=== PATIENT | male | born 1980 | race Caucasian/White ===

== ENCOUNTER 2016-12-31 14:14 | Emergency (ER) | payer MEDICAID ==
[~2016-12-31] VITALS: Ht 182.9 cm; Wt 88.6 kg
[2016-12-31 14:15] VITALS: BP 119/77
[2016-12-31] MEDS: APAP/CODEINE 24/2.4MG/ML ELIXIR PO PRN (16:41)
== END 2016-12-31 17:05 | disposition home or self-care (01) ==
LOC: ED 16:57
DX: B34.9 Viral infection, unspecified (principal); F17.200 Nicotine dependence, unspecified, uncomplicated; F32.9 Major depressive disorder, single episode, unspecified
CPT/HCPCS: 99283

== ENCOUNTER 2017-05-02 16:02 | Emergency (ER) | payer MEDICAID ==
[~2017-05-02] VITALS: Ht 182.9 cm; Wt 90.5 kg
[2017-05-02 16:06] VITALS: BP 109/79
[2017-05-02] MEDS ORDERED: HYDROcodone/APAP 5/325 TABLET PO ONE (16:30)
[2017-05-02] MEDS ORDERED: HYDROcodone/APAP 5/325 TABLET ONE (16:31)
[2017-05-02] MEDS ORDERED: OXYcodone/APAP 5/325MG TABLET ONE (16:34)
[2017-05-02] MEDS ORDERED: OXYcodone/APAP 5/325MG TABLET PO ONE (17:00)
== END 2017-05-02 17:19 | disposition home or self-care (01) ==
LOC: ED 16:30
DX: K02.9 Dental caries, unspecified (principal); K01.1 Impacted teeth
CPT/HCPCS: 99283

== ENCOUNTER 2018-08-24 15:44 | Emergency (ER) | payer BC, MEDICAID ==
[~2018-08-24] VITALS: Ht 182.9 cm; Wt 103.7 kg
--- NOTE | 2018-08-24 16:11 | NUR ---
Pt presents to ED with c/o intermittent and now constant epigastric pain that began on Thursday. Pt states, "On Thursday I threw up and had diarrhea at the same time, which was really awkward. I threw up [employer] slime that was clear and black stuff in it. I had diarrhea on Thursday. I don't think I have had a bowel movement since." NADN. Pt resting on gurney connected to NIBP, continous pulse ox, and court monitor. Bedside rail up for safety measure. Call light within reach. Ultrasound at bedside. Pt denies blood in emesis or stool. Pt denies cp, sob, trauma, syncope, diaphoresis, or numbness or tingling.
[2018-08-24 16:36] LABS: BASOPHILS # (AUTO) 0.04 x10^3/uL (0-0.1); BASOPHILS % (AUTO) 1 % (0-1); EOSINOPHILS # (AUTO) 0.59 x10^3/uL (0-0.4); EOSINOPHILS % (AUTO) 7 % (1-7); LYMPHOCYTES # (AUTO) 2.83 x10^3/uL (1-3.4); LYMPHOCYTES % (AUTO) 32 % (22-44); MD NO; MEAN CORPUSCULAR HEMOGLOBIN 31.9 pg (27.5-34.5); MEAN CORPUSCULAR HGB CONC 34.7 g/dL (33.2-36.2); MEAN CORPUSCULAR VOLUME 91.8 fL (81-97); MEAN PLATELET VOLUME 8.9 fL (7.4-10.4); MONOCYTES # (AUTO) 0.56 x10^3/uL (0.2-0.8); MONOCYTES % (AUTO) 6 % (2-9); NEUTROPHILS # (AUTO) 4.87 x10^3/uL (1.8-6.8); NEUTROPHILS % (AUTO) 55 % (42-75); PLATELET COUNT 234 x10^3/uL (130-400); RED BLOOD COUNT 5.23 x10^6/uL (4.38-5.82); RED CELL DISTRIBUTION WIDTH 12.7 % (9.4-14.8)
[2018-08-24 16:38] LABS: ALANINE AMINOTRANSFERASE 62 U/L (12-78); ALBUMIN 3.8 g/dL (3.4-5.0); ANION GAP 9 mmol/L (5-15); CALCIUM 8.5 mg/dL (8.5-10.1); CHLORIDE 110 mmol/L (98-107); CREATININE 0.98 mg/dL (0.7-1.3)
[2018-08-24 16:40] LABS: ALKALINE PHOSPHATASE 121 U/L (45-117); BILIRUBIN,TOTAL 0.2 mg/dL (0.2-1.0); TOTAL PROTEIN 7.5 g/dL (6.4-8.2)
[2018-08-24] MEDS ORDERED: MAALOX/HYOSCYAMINE/LIDOCAINE 45 ML BTL PO ONE (17:00)
[2018-08-24] MEDS ORDERED: MAALOX/HYOSCYAMINE/LIDOCAINE 45 ML BTL ONE (17:03)
[2018-08-24 17:08] VITALS: BP 107/70
--- NOTE | 2018-08-24 17:08 | NUR ---
Provided medication per EMAR to pt. Pt appreciative. Provided urinal to pt. Pt aware of need of UA. NADN. No other needs. Call light within reach.
[2018-08-24 17:31] LABS: MICROSCOPIC NOT IND
[2018-08-24 17:40] LABS: CULTURE INDICATED? NO
--- NOTE | 2018-08-24 18:30 | NUR ---
Patient given discharge instructions and they have confirmed that they understand the instructions. Patient ambulatory with steady gait. Patient left with d/c paperwork, prescriptions, and all personal belongings.
== END 2018-08-24 18:35 | disposition home or self-care (01) ==
LOC: ED 18:00
DX: K26.3 Acute duodenal ulcer without hemorrhage or perforation (principal)
CPT/HCPCS: 36415; 76700; 80053; 81003; 83690; 85025; 93005; 99284

== ENCOUNTER 2018-08-26 14:04 | Emergency (ER) | payer BC ==
[~2018-08-26] VITALS: Ht 182.9 cm; Wt 102.9 kg
[2018-08-26] MEDS ORDERED: SODIUM CHLORIDE FLUSH 10ML SYR IVF ONE (14:30)
[2018-08-26 14:40] LABS: MEAN CORPUSCULAR HEMOGLOBIN 31.7 pg (27.5-34.5); MEAN CORPUSCULAR HGB CONC 34.6 g/dL (33.2-36.2); MEAN CORPUSCULAR VOLUME 91.5 fL (81-97); MEAN PLATELET VOLUME 8.8 fL (7.4-10.4); PLATELET COUNT 272 x10^3/uL (130-400); RED BLOOD COUNT 5.62 x10^6/uL (4.38-5.82); RED CELL DISTRIBUTION WIDTH 12.9 % (9.4-14.8)
--- NOTE | 2018-08-26 14:47 | NUR ---
PATIENT PRESENTS TO ED TODAY FOR RUQ/LUQ ABD PAIN AND N/V/D X 6 DAYS. IV STARTED, LABS DRAWN, EKG COMPLETED. NAD NOTED. CALL LIGHT WITHIN REACH.
[2018-08-26 14:50] LABS: ALANINE AMINOTRANSFERASE 91 U/L (12-78); ANION GAP 8 mmol/L (5-15); CALCIUM 8.6 mg/dL (8.5-10.1); CHLORIDE 109 mmol/L (98-107); CREATININE 0.97 mg/dL (0.7-1.3)
[2018-08-26 14:52] LABS: ALKALINE PHOSPHATASE 106 U/L (45-117); BILIRUBIN,TOTAL 0.2 mg/dL (0.2-1.0); TOTAL PROTEIN 7.7 g/dL (6.4-8.2)
[2018-08-26 14:59] LABS: BASOPHILS # (AUTO) 0.01 x10^3/uL (0-0.1); BASOPHILS % (AUTO) 0 % (0-1); EOSINOPHILS # (AUTO) 0.69 x10^3/uL (0-0.4); EOSINOPHILS % (AUTO) 6 % (1-7); LYMPHOCYTES # (AUTO) 2.72 x10^3/uL (1-3.4); LYMPHOCYTES % (AUTO) 25 % (22-44); MD SCAN; MONOCYTES # (AUTO) 0.53 x10^3/uL (0.2-0.8); MONOCYTES % (AUTO) 5 % (2-9); NEUTROPHILS # (AUTO) 6.98 x10^3/uL (1.8-6.8); NEUTROPHILS % (AUTO) 64 % (42-75)
[2018-08-26] MEDS ORDERED: PROMETHAZINE 25 MG/ML, 1ML IM ONE (15:00)
[2018-08-26] MEDS ORDERED: PROMETHAZINE 25 MG/ML, 1ML ONE (15:01)
--- NOTE | 2018-08-26 16:09 | NUR ---
LAB RESULTS BACK, PENDING CT.
--- NOTE | 2018-08-26 16:16 | NUR ---
PATIENT NEXT FOR CT, PER EXECUTIVE CONSULTANT.
--- NOTE | 2018-08-26 16:43 | NUR ---
PATIENT TO CT VIA [id number].
[2018-08-26] MEDS ORDERED: OMNIPAQUE 350 MG/ML, 100ML BOTTLE ONE (16:59)
[2018-08-26 17:59] VITALS: BP 106/59
--- NOTE | 2018-08-26 17:59 | NUR ---
Patient/Caregiver given discharge instructions and they have confirmed that they understand the instructions. Patient ambulatory with steady gait.
[2018-08-29] MEDS ORDERED: ONDA4TAB7 PO (07:44)
[2018-08-29] MEDS ORDERED: RANI150C PO (07:45)
[2018-08-29] MEDS ORDERED: SUCR1TAB PO (07:45)
[2018-08-29] MEDS ORDERED: OMEP-110 PO (07:45)
== END 2018-08-26 18:01 | disposition home or self-care (01) ==
LOC: ED 17:07
DX: K27.3 Acute peptic ulcer, site unspecified, without hemorrhage or perforation (principal); R10.13 Epigastric pain; Z88.5 Allergy status to narcotic agent
CPT/HCPCS: 36415; 74177; 80053; 83690; 85025; 93005; 96372; 99284; J2550; Q9967

== ENCOUNTER 2018-11-12 10:47 | Emergency (ER) | payer BC ==
[~2018-11-12] VITALS: Ht 182.9 cm; Wt 91.0 kg
[2018-11-12 11:56] VITALS: BP 112/70
== END 2018-11-12 12:43 | disposition home or self-care (01) ==
LOC: ED 12:18
DX: R55 Syncope and collapse (principal); K21.9 Gastro-esophageal reflux disease without esophagitis; F17.210 Nicotine dependence, cigarettes, uncomplicated
CPT/HCPCS: 36415; 80053; 80307; 81003; 83605; 84484; 85025; 93005; 99284

== ENCOUNTER 2019-06-05 08:52 | Emergency (ER) | payer BC ==
[~2019-06-05] VITALS: Ht 182.9 cm; Wt 106.8 kg
[~2019-06-05 08:52] MED LIST: OMEP-110 PO; ONDA4TAB7 PO; RANI150C PO; SUCR1TAB PO
--- NOTE | 2019-06-05 09:12 | NUR ---
PT HERE WITH C/O DIZZINESS AND LIGHTHEADEDNESS X 3 DAYS AND ASSOCIATED VOMITING THIS MORNING. PT AAO X 4, NAD, ROOM AIR, DRESSED IN GOWN AND ON FULL MONITOR. CALL LIGHT WITHIN REACH AND SIDERAIL X [address] FAMILY AT BEDSIDE.
[2019-06-05] MEDS ORDERED: TRAZ50TA66 PO (09:18)
[2019-06-05] MEDS ORDERED: LEXAPRO (09:18)
[2019-06-05] MEDS ORDERED: ABILIFY (09:18)
[2019-06-05] MEDS ORDERED: AMPH15TA PO (09:18)
--- NOTE | 2019-06-05 09:25 | NUR ---
MACHINIST AT BEDSIDE FOR EXAM.
[2019-06-05] MEDS ORDERED: MECLIZINE CHEWABLE 25 MG TAB ONE (09:51)
[2019-06-05 09:53] VITALS: BP 107/62
--- NOTE | 2019-06-05 09:53 | NUR ---
PT MEDICATED PER ORDERS. MD AT BEDSIDE FOR EXAM.
[2019-06-05] MEDS ORDERED: MECLIZINE CHEWABLE 25 MG TAB PO ONE (10:00)
--- NOTE | 2019-06-05 10:38 | NUR ---
LAB AT BEDSIDE.
[2019-06-05 10:46] LABS: BASOPHILS # (AUTO) 0.05 x10^3/uL (0-0.1); BASOPHILS % (AUTO) 1 % (0-1); EOSINOPHILS # (AUTO) 0.37 x10^3/uL (0-0.4); EOSINOPHILS % (AUTO) 4 % (1-7); LYMPHOCYTES % (AUTO) 26 % (22-44); MD NO; MEAN CORPUSCULAR HEMOGLOBIN 31.8 pg (27.5-34.5); MEAN CORPUSCULAR HGB CONC 34.1 g/dL (33.2-36.2); MEAN CORPUSCULAR VOLUME 93.3 fL (81-97); MONOCYTES # (AUTO) 0.49 x10^3/uL (0.2-0.8); MONOCYTES % (AUTO) 5 % (2-9); NEUTROPHILS # (AUTO) 5.98 x10^3/uL (1.8-6.8); NEUTROPHILS % (AUTO) 64 % (42-75); PLATELET COUNT 244 x10^3/uL (130-400); RED BLOOD COUNT 5.44 x10^6/uL (4.38-5.82); RED CELL DISTRIBUTION WIDTH 12.6 % (9.4-14.8)
[2019-06-05 10:58] LABS: ALBUMIN 3.4 g/dL (3.4-5.0); CALCIUM 8.4 mg/dL (8.5-10.1); CHLORIDE 107 mmol/L (98-107); CREATININE 1.14 mg/dL (0.7-1.3)
[2019-06-05 11:06] LABS: ANION GAP 6 mmol/L (5-15)
--- NOTE | 2019-06-05 11:55 | NUR ---
Patient/Caregiver given discharge instructions and they have confirmed that they understand the instructions. Patient ambulatory with steady gait.
== END 2019-06-05 12:13 | disposition home or self-care (01) ==
LOC: ED 09:03
DX: R42 Dizziness and giddiness (principal); R11.10 Vomiting, unspecified; K21.9 Gastro-esophageal reflux disease without esophagitis; F17.200 Nicotine dependence, unspecified, uncomplicated
CPT/HCPCS: 36415; 80048; 82040; 85025; 93005; 99284

== ENCOUNTER 2020-01-11 10:31 | Emergency (ER) | payer BC, OTHER ==
[~2020-01-11] VITALS: Ht 182.9 cm; Wt 109.0 kg
[~2020-01-11 10:31] MED LIST changes: +ABILIFY; +AMPH15TA PO; +LEXAPRO; +TRAZ50TA66 PO
[2020-01-11 10:38] VITALS: BP 136/73
[2020-01-11] MEDS ORDERED: BUPIVACAINE 0.25% ONE (11:01)
[2020-01-11] MEDS ORDERED: LIDOCAINE-MPF 1%, 5ML ONE (11:01)
== END 2020-01-11 11:47 | disposition home or self-care (01) ==
LOC: ED 11:39
DX: K02.9 Dental caries, unspecified (principal); R22.0 Localized swelling, mass and lump, head
CPT/HCPCS: 64400; 99284

== ENCOUNTER 2020-01-16 21:01 | Emergency (ER) | payer OTHER ==
[~2020-01-16] VITALS: Ht 182.9 cm; Wt 111.3 kg
--- NOTE | 2020-01-16 21:17 | NUR ---
assessment made. PA at bedside.
[2020-01-16] MEDS ORDERED: LIDOCAINE-MPF 1%, 2ML ONE (21:25)
[2020-01-16] MEDS ORDERED: OXYcodone/APAP 7.5/325MG TABLET ONE (21:25)
[2020-01-16] MEDS ORDERED: BUPIVACAINE 0.25% ONE (21:25)
[2020-01-16] MEDS ORDERED: BUPIVACAINE/PF-EPI 0.25% 1:200K SQ ONE (21:30)
[2020-01-16] MEDS ORDERED: LIDOCAINE-MPF 1%, 5ML INFIL ONE (21:30)
[2020-01-16] MEDS ORDERED: OXYcodone/APAP 7.5/325MG TABLET PO ONE (21:30)
--- NOTE | 2020-01-16 21:35 | NUR ---
patient medicated for pain.
--- NOTE | 2020-01-16 21:49 | NUR ---
patient discharged with prescription and instruction. verbalized understanding.
[2020-01-16 21:50] VITALS: BP 139/83
== END 2020-01-16 21:52 | disposition home or self-care (01) ==
LOC: ED 21:21
DX: K08.89 Other specified disorders of teeth and supporting structures (principal); K21.9 Gastro-esophageal reflux disease without esophagitis; Z87.11 Personal history of peptic ulcer disease
CPT/HCPCS: 64400; 96372; 99284